=== PATIENT | female | born 1990 | race Two or more races ===

== ENCOUNTER 2023-02-05 14:57 | Emergency (ER) | payer BC, MEDICAID | END 2023-02-05 15:02 | disposition left against medical advice (07) | LOC: ER 14:57 | DX: R51.9 Headache, unspecified (principal); Z53.21 Procedure and treatment not carried out due to patient leaving prior to being seen by health care provider ==

== ENCOUNTER 2023-09-15 07:54 | Emergency (ER) | payer MEDICAID ==
[~2023-09-15] VITALS: Ht 157.5 cm; Wt 94.6 kg
[2023-09-15 08:18] VITALS: BP 138/83; PULSE 75; RESP 16; TEMP 97.8; O2SAT 98
[2023-09-15] MEDS ORDERED: KETOROLAC TROMETH 60MG/2ML VIAL IM ONE (08:30)
[2023-09-15] MEDS ORDERED: CYCL-839 PO (09:38)
[2023-09-15] MEDS ORDERED: IBUP-1455 PO (09:38)
== END 2023-09-15 09:46 | disposition home or self-care (01) ==
LOC: ER 07:54
DX: M62.838 Other muscle spasm (principal)
CPT/HCPCS: 72040; 96372; 99283; J1885